=== PATIENT | male | born 1940 | race Caucasian/White ===

== ENCOUNTER 2020-06-01 12:39 | Observation (INO) | payer MEDICARE, OTHER ==
[~2020-06-01] VITALS: Ht 185.4 cm; Wt 84.5 kg
[2020-06-01] MEDS ORDERED: CELE1CAP9 PO (12:55)
[2020-06-01] MEDS ORDERED: ATOR1TAB21 PO (12:55)
[2020-06-01] MEDS ORDERED: NS 500 ML IV ONE (14:30)
[2020-06-01 14:51] LABS: BASO % 0.4 % (0.0-1.0); EOS # 0.1 10^3/uL (0.0-0.5); EOS % 1.7 % (0.0-3.0); HEMOGLOBIN 13.6 g/dl (13.5-17.5); MEAN CORPUSCULAR HEMOGLOBIN 32.5 pg (27.0-33.0); MEAN CORPUSCULAR HGB CONC 33.2 g/dl (32.0-36.5); MEAN CORPUSCULAR VOLUME 97.9 fl (80.0-96.0); MONO # 0.5 10^3/uL (0.0-0.8); MONO % 9.9 % (0.0-5.0); NEUTROPHILS # 3.6 10^3/uL (1.5-8.5); NEUTROPHILS % 68.8 % (36.0-66.0); PLATELET COUNT, AUTOMATED 159 10^3/uL (150-450); RED BLOOD COUNT 4.19 10^6/uL (4.30-6.10); WHITE BLOOD COUNT 5.3 10^3/uL (4.0-10.0)
--- NOTE | 2020-06-01 14:52 | REPVR ---
PROCEDURE INFORMATION: Exam: CT Head Without Contrast Exam date and time: 06/01/2020 2:38 PM Age: 79 years old Clinical indication: Altered mental status/memory loss; Additional info: CVA - nursing interventions must not delay CT TECHNIQUE: Imaging protocol: Computed tomography of the head without contrast. Radiation optimization: All CT scans at this facility use at least one of these dose optimization techniques: automated exposure control; mA and/or kV adjustment per patient size (includes targeted exams where dose is matched to clinical indication); or iterative reconstruction. Other technique: STROKE PROTOCOL was implemented. COMPARISON: No relevant prior studies available. FINDINGS: Brain: The brain demonstrates diffuse volume loss. There is white matter hypodensity most consistent with chronic small vessel ischemic change. No visible evolving territorial infarct. No hemorrhage. Ventricles: No ventriculomegaly. Bones/joints: There is apex right deviation of the nasal septum. Paranasal sinuses: Visualized sinuses are unremarkable. No fluid levels. Mastoid air cells: Visualized mastoid air cells are well aerated. Soft tissues: Unremarkable. IMPRESSION: No acute intracranial abnormality seen. ASSESSMENT: ASPECTS ([place] Stroke Program Early CT Score) is 10. Electronically signed by: Maria E Wilcox On 06/01/2020 14:52:35 PM
[2020-06-01 15:01] LABS: INR 0.95; PROTHROMBIN TIME 12.8 SECONDS (12.5-14.3)
[2020-06-01 15:03] LABS: PARTIAL THROMBOPLASTIN TIME 29.4 SECONDS (24.2-38.5)
[2020-06-01 15:14] LABS: BLOOD UREA NITROGEN 19 MG/DL (7-18); CALCIUM LEVEL 9.2 MG/DL (8.8-10.2); CARBON DIOXIDE LEVEL 30 MEQ/L (21-32); CHLORIDE LEVEL 109 MEQ/L (98-107); CK-MB VALUE MASS 3.4 NG/ML (<3.6); CPK CREATINE PHOSPHOKINASE 187 U/L (39-308); CREATININE FOR GFR 1.17 MG/DL (0.70-1.30); GLOMERULAR FILTRATION RATE > 60.0 (>42); GLUCOSE, FASTING 91 MG/DL (70-100); MB/CK RELATIVE INDEX 1.82 (< OR =4); POTASSIUM SERUM 4.6 MEQ/L (3.5-5.1); SODIUM LEVEL 141 MEQ/L (136-145); TROPONIN I < 0.02 NG/ML (< 0.10)
--- NOTE | 2020-06-01 15:43 | REPVR ---
PROCEDURE INFORMATION: Exam: XR Chest, 1 View Exam date and time: 06/01/2020 3:16 PM Age: 79 years old Clinical indication: Other: Weakness; Additional info: CVA TECHNIQUE: Imaging protocol: XR of the chest Views: 1 view. COMPARISON: No relevant prior studies available. FINDINGS: Lungs: Unremarkable. No consolidation. Pleural space: Unremarkable. No pleural effusion. No pneumothorax. Heart/Mediastinum: Unremarkable. No cardiomegaly. Bones/joints: Unremarkable. IMPRESSION: No evidence of acute cardiopulmonary disease. Electronically signed by: Maria E Wilcox On 06/01/2020 15:43:03 PM
[2020-06-01] MEDS ORDERED: ASPIRIN 325 MG TAB PO ONE (16:00)
[2020-06-01] MEDS ORDERED: SAW1CAPS2 PO (16:22)
[2020-06-01] MEDS ORDERED: LORA-622 PO (16:22)
[2020-06-01] MEDS ORDERED: IRON65TA2 PO (16:22)
[2020-06-01] MEDS ORDERED: ONE-TAB31 PO (16:22)
[2020-06-01] MEDS ORDERED: ATORVASTATIN 20 MG TAB PO ONE (18:15)
--- NOTE | 2020-06-01 18:18 | HPEPDOC ---
[facility] Medical History & Physical Date of Admission Jun 01, 2020 Date of Service: Jun 01, 2020 History and Physical CHIEF COMPLAINT: Paresthesia of the face HISTORY OF PRESENT ILLNESS: Patient is 79-year-old male past medical history of HLD who presents to the emergency department after an episode of paresthesia affecting his lips, tongue, and scalp as well as his right arm. He reports he's never had an episode like this before. 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 He endorses at this paresthesia feels different. He reports that the episode lasted a total of 2 hours before resolving completely with no residual symptoms by the time he arrived to the ED. In the ED CT heads was negative for intracranial bleeding. EKG was normal sinus rhythm and aspirin was given. Neurology was consulted from the ED Dr. Jackson who will see the patient and recommended a stroke workup. PAST MEDICAL HISTORY: 1. Hyperlipidemia PAST SURGICAL HISTORY: 1. None SOCIAL HISTORY: Marital status: and take cares of his at home He quit smoking over 40 years ago. He denies any illicit drug use. Endorses drinking 1-2 beers daily but has never gone through withdrawals. ALLERGIES: Please see below. REVIEW OF SYSTEMS: Constitutional: No sweating or weight loss Eyes: No eye pain or acute blurred vision HENT: No complaints of headache or sore throat Cadiovascular: No Chest pain or palpitations Pulm: No SOB or cough Gastrointestinal: No N/V, no abdominal pain. Genitourinary: No dysuria or hematuria Musculoskeletal: No back pain or joint pain Skin: No rash or jaundice neuro: As in [facility] HOME MEDICATIONS: Please see below. PHYSICAL EXAMINATION: Constitutional: Awake and alert, in no apparent distress ENT: Sclera are clear. Mucosa is moist. Respiratory: Lungs CTA bilaterally. No respiratory distress. No use of accessory muscles. Cardiovascular: RRR S1 and S2 are normal, no murmur Gastrointestinal: Abdomen is soft, non distended, non tender, BS present. Musculoskeletal: No edema. Neurologic: No focal neurological deficit. See full neurological exam below Mental Status: A&O x3, normal affect Skin: Warm, dry Neurological exam: mental status: The patient is awake, alert, oriented to name, location, and date. Cranial nerves: Pupils are equal, round, and reactive to light. Extraocular muscles intact. Visual judge full bilaterally. Smile is symmetrical. Tongue is midline. Intact sensation on both sides of face. Motor: At least 4+/5 in both upper and lower extremities without any drifting. Sensory: Intact to sensation bilaterally. Reflexes: Symmetrical, non-hyperreflexic. Not pathological. Coordination: Jxgiqi-am-[id number] grossly intact. LABORATORY DATA: See below. IMAGING: CT negative for intracranial bleeding MICROBIOLOGY: Please see below. Assessment/plan 79-year-old male with past medical history of hyperlipidemia presents to the ED for sudden onset paresthesias over his face and right arm. Being admitted to the inpatient service for stroke workup. At the time of admission all symptoms have resolved. # Face paresthesia: Symptoms resolved at time of admission. - Stroke protocol initiated - CT head shows no acute intracranial abnormality - ASA 81 mg - Atorvastatin 40 mg QHS - MRI brain and MRA brain w/o contrast - Carotid ultrasound - I performed a bedside swallow evaluation and patient passed. - Neurology consulted - PT/OT eval - Fall & seizure precautions # Hyperlipidemia: Statin # DVT prophylaxis: Lovenox daily. A [facility]ouse[facility] Hospitalist Vital Signs Vital Signs Date Time Temp Pulse Resp B/P (MAP) Pulse Ox O2 Delivery O2 Flow Rate FiO2 06/01/20 16:19 148/68 (94) 06/01/20 16:15 69 18 99 Room Air 06/01/20 12:45 98.3 Laboratory Data Labs 24H Laboratory Tests 2 06/01/20 14:36: Immature Granulocyte % (Auto) 0.2, Neutrophils (%) (Auto) 68.8H, Lymphocytes (%) (Auto) 19.0L, Monocytes (%) (Auto) 9.9H, Eosinophils (%) (Auto) 1.7, Basophils (%) (Auto) 0.4, Neutrophils # (Auto) 3.6, Lymphocytes # (Auto) 1.0L, Monocytes # (Auto) 0.5, Eosinophils # (Auto) 0.1, Basophils # (Auto) 0.0, Nucleated Red Blood Cells % (auto) 0.0, Prothrombin Time 12.8, Prothromb Time International Ratio 0.95, Activated Partial Thromboplast Time 29.4, Urine Color YELLOW, Urine Appearance CLEAR, Urine pH 6.0, Urine Specific [place] 1.006, Urine Protein NEGATIVE, Urine Glucose (UA) NEGATIVE, Urine Ketones NEGATIVE, Urine Blood NEGATIVE, Urine Nitrite NEGATIVE, Urine Bilirubin NEGATIVE, Urine Urobilinogen 0.2, Urine Leukocyte Esterase NEGATIVE, Urine WBC (Auto) 0, Urine RBC (Auto) 0, Urine Hyaline Casts (Auto) 0, Urine Bacteria (Auto) NEGATIVE, Urine Squamous Epithelial Cells 0, Urine Sperm (Auto) , Anion Gap 2L, Glomerular Filtration Rate > 60.0, Calcium Level 9.2, Total Creatine Kinase 187, Creatine Kinase MB 3.4, Creatine Kinase MB Relative Index 1.82, Troponin I < 0.02 CBC/BMP Laboratory Tests 06/01/20 14:36 Home Medications Scheduled Atorvastatin Calcium (Atorvastatin Calcium) 20 Mg Tablet, 20 MG PO DAILY Celecoxib (Celecoxib) 200 Mg Capsule, 200 MG PO DAILY Ferrous Sulfate (Iron) 325 Mg Tablet, 325 MG PO DAILY Loratadine (Loratadine) 10 Mg Tablet, 10 MG PO DAILY Multivitamin (One-Daily Multi-Vitamin) 1 Each Tablet, 1 TAB PO DAILY Saw [place] Fruit/Zinc Picoli (Saw [place] 450 mg Capsule) 1 Each Capsule, 900 MG PO BID Allergies Coded Allergies: No Known Allergies (Verified Allergy, Unknown, 06/01/20) A-FIB/CHADSVASC A-FIB History Current/History of A-Fib/PAF?: No MARK BERUMEN MD Jun 01, 2020 18:17
--- NOTE | 2020-06-01 20:17 | REPVR ---
PROCEDURE INFORMATION: Exam: MR Head Without Contrast Exam date and time: 06/01/2020 5:45 PM Age: 79 years old Clinical indication: Alteration of consciousness; Transient alteration of awareness; Additional info: Suspect TIA TECHNIQUE: Imaging protocol: MR of the head without contrast. COMPARISON: CT Head without contrast 06/01/2020 2:35 PM FINDINGS: Brain: No acute infarct identified on the diffusion-weighted imaging. The brain demonstrates mild generalized volume loss. Patchy foci of increased signal intensity in the deep and subcortical white matter on the T2 weighted imaging most likely representing mild chronic small vessel ischemic change. No hemorrhage. A few tiny, chronic bilateral cerebellar infarcts. Cerebral ventricles: No ventriculomegaly. Bones/joints: Unremarkable. Paranasal sinuses: Normal as visualized. No acute sinusitis. Mastoid air cells: Normal as visualized. No mastoid effusion. Orbits: Unremarkable. Soft tissues: Unremarkable. IMPRESSION: No evidence of acute infarct. Electronically signed by: Maria E Wilcox On 06/01/2020 20:16:34 PM
--- NOTE | 2020-06-01 20:20 | REPVR ---
PROCEDURE INFORMATION: Exam: MR Angiogram Head Without Contrast, Arteries Exam date and time: 06/01/2020 5:45 PM Age: 79 years old Clinical indication: Cognitive deficit; Altered mental status; Additional info: Suspect TIA TECHNIQUE: Imaging protocol: MR angiogram head without contrast. Exam focused on the arteries. COMPARISON: CT Head without contrast 06/01/2020 2:35 PM MRI-Brain without Contrast 06/01/2020 7:29:13 PM FINDINGS: ANTERIOR CIRCULATION: Right internal carotid artery: Intracranial segment is patent with no significant stenosis. No aneurysm. Right middle cerebral artery: No occlusion or significant stenosis. No aneurysm. Right anterior cerebral artery: No occlusion or significant stenosis. No aneurysm. Left internal carotid artery: Intracranial segment is patent with no significant stenosis. No aneurysm. Left middle cerebral artery: No occlusion or significant stenosis. No aneurysm. Left anterior cerebral artery: No occlusion or significant stenosis. No aneurysm. POSTERIOR CIRCULATION: Right vertebral artery: No occlusion or significant stenosis. No aneurysm. Left vertebral artery: No occlusion or significant stenosis. No aneurysm. Basilar artery: No occlusion or significant stenosis. No aneurysm. Right posterior cerebral artery: No occlusion or significant stenosis. No aneurysm. Left posterior cerebral artery: No occlusion or significant stenosis. No aneurysm. IMPRESSION: No major proximal vessel branch occlusion or stenosis seen. Electronically signed by: Maria E Wilcox On 06/01/2020 20:19:40 PM
[2020-06-01 21:15] VITALS: BP 104/64
[2020-06-02 06:00] VITALS: BP 128/68
[2020-06-02 07:18] LABS: HEMATOCRIT 41.2 % (42.0-52.0); HEMOGLOBIN 13.5 g/dl (13.5-17.5); MEAN CORPUSCULAR HEMOGLOBIN 32.7 pg (27.0-33.0); MEAN CORPUSCULAR HGB CONC 32.8 g/dl (32.0-36.5); MEAN CORPUSCULAR VOLUME 99.8 fl (80.0-96.0); PLATELET COUNT, AUTOMATED 171 10^3/uL (150-450); RED BLOOD COUNT 4.13 10^6/uL (4.30-6.10); WHITE BLOOD COUNT 4.3 10^3/uL (4.0-10.0)
[2020-06-02 07:25] LABS: BLOOD UREA NITROGEN 19 MG/DL (7-18); CARBON DIOXIDE LEVEL 30 MEQ/L (21-32); CHLORIDE LEVEL 108 MEQ/L (98-107); CREATININE FOR GFR 1.14 MG/DL (0.70-1.30); GLOMERULAR FILTRATION RATE > 60.0 (>42); GLUCOSE, FASTING 97 MG/DL (70-100); POTASSIUM SERUM 4.1 MEQ/L (3.5-5.1); SODIUM LEVEL 144 MEQ/L (136-145)
--- NOTE | 2020-06-02 07:31 | REPVR ---
PROCEDURE INFORMATION: Exam: US Duplex Bilateral Extracranial Arteries Exam date and time: 06/02/2020 6:39 AM Age: 79 years old Clinical indication: Other: TIA; Additional info: Suspected TIA TECHNIQUE: Imaging protocol: Real-time Duplex ultrasound scan of the bilateral carotid and vertebral arteries combining delgado scale, color Doppler and spectral waveform analysis. Bilateral exam. COMPARISON: CT Head without contrast 06/01/2020 2:35 PM FINDINGS: Right common carotid artery: The right proximal CCA is patent with normal waveform and peak systolic velocity of 60.7 centimeter/second. The mid right CCA is patent with normal waveform and peak systolic velocity of 86.9 centimeter/second. The distal right CCA is patent with normal waveform and peak systolic velocity of 73 centimeter/second. Right internal carotid artery: Small echogenic partly calcified plaque seen in the right carotid bulb. The proximal right ICA is patent with normal waveforms and peak systolic velocity of 50.4 centimeter/second. The end-diastolic velocity measures 8.2 centimeter/second. The right mid ICA is patent with peak systolic velocity of 82.8 centimeter/second. There is increasing diastolic flow with increased end-diastolic velocity at 22.1 centimeter/second The distal right ICA is patent with peak systolic velocity of 99.5 centimeter/second. There is increased diastolic flow with increased end-diastolic velocities of 32.4 centimeter/second. Right ICA/CCA ratio: The peak systolic ICA to CCA ratio on the right measures 1.14. The end-diastolic ICA to CCA ratio on the right measures 1.91 Right external carotid artery: Proximal right ECA is patent with normal waveforms and peak systolic velocity of 62.2 centimeter/second. Right vertebral artery: Antegrade flow seen in the mid right vertebral artery with peak systolic velocity of 125.1 centimeter/second. Reversed flow seen in the mid right vertebral artery with peak systolic velocity of 76 centimeter/second. Left common carotid artery: The left proximal CCA is patent with normal waveform and peak systolic velocity of 94.8 centimeter/second. The mid left CCA is patent with normal waveform and peak systolic velocity of 79.6 centimeter/second. The distal left CCA is patent with normal waveform and peak systolic velocity of 87.4 centimeter/second. Left internal carotid artery: The proximal left ICA is patent with normal waveforms and peak systolic velocity of 78.7 centimeter/second. The left mid ICA is patent with peak systolic velocity of 102.5 centimeter/second. The distal left ICA is patent with peak systolic velocity of 80 centimeter/second. Left ICA/CCA ratio: The peak systolic ICA to CCA ratio on the left measures 1.08 Left external carotid artery: Proximal left ECA is patent with normal waveforms and peak systolic velocity of 44 centimeter/second. Left vertebral artery: Unremarkable. Antegrade flow. Lymph nodes: The end-diastolic ICA to CCA on the left measures 1.5 IMPRESSION: 1. No hemodynamically significant stenosis seen in the right or left internal carotid arteries as observed by the peak systolic velocities and peak systolic ICA to CCA ratio however increased end-diastolic velocities noted in the mid to distal right ICA with mild increased end-diastolic ICA to CCA ratio on the right suggestive of less or near 50% stenosis. 2. Reversed flow in the left vertebral artery. 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 3. Increased right vertebral artery velocities could be compensatory in nature due to the reversal of flow in the left vertebral artery or could be secondary to hemodynamically significant stenosis. If indicated further evaluation with CT angiogram may be obtained. REFERENCES: SRU CRITERIA. The degree of internal carotid artery stenosis is based on criteria defined by the Society of Radiologists in Ultrasound (SRU). Normal is no stenosis. Mild is less than 50% stenosis. Moderate is 50-69% stenosis. Severe is greater than 69% stenosis to near occlusion. Near occlusion is a markedly narrowed lumen. Total occlusion is no detectable patent lumen. Electronically signed by: Ronnie Adams On 06/02/2020 07:30:30 AM
--- NOTE | 2020-06-02 08:56 | IPNPDOC ---
Text Note Date of Service The patient was seen on 06/02/20. NOTE S Patient seen and examined this morning is doing well with no new symptoms. No overnight events. O Constitutional: Awake and alert, in no apparent distress ENT: Sclera are clear. Mucosa is moist. Respiratory: Lungs CTA bilaterally. No respiratory distress. No use of accessory muscles. Cardiovascular: RRR S1 and S2 are normal, no murmur Gastrointestinal: Abdomen is soft, non distended, non tender, BS present. Musculoskeletal: No edema. Neurologic: No focal neurological deficit. See full neurological exam below Mental Status: A&O x3, normal affect Skin: Warm, dry Neurological exam: mental status: The patient is awake, alert, oriented to name, location, and date. Cranial nerves: Pupils are equal, round, and reactive to light. Extraocular muscles intact. Visual judge full bilaterally. Smile is symmetrical. Tongue is midline. Intact sensation on both sides of face. Motor: At least 4+/5 in both upper and lower extremities without any drifting. Sensory: Intact to sensation bilaterally. Reflexes: Symmetrical, non-hyperreflexic. Not pathological. Coordination: Cketfn-le-bgog grossly intact. A/P 79-year-old male with past medical history of hyperlipidemia presents to the ED for sudden onset paresthesias over his face and right arm. Being admitted to the inpatient service for stroke workup. At the time of admission all symptoms have resolved. # Face paresthesia: Symptoms resolved at time of admission. - Stroke protocol initiated - CT head shows no acute intracranial abnormality - MRI brain and MRA brain w/o contrast both negative for occlusions or infarcts - Carotid ultrasound shows approximately 50% occlusion of the carotids on the right side spoke with Dr. Mittal vascular surgery who will review the ultrasound imaging and determine if patient is appropriate for endarterectomy. - I performed a bedside swallow evaluation and patient passed. - Neurology consulted if all imaging negative patient can be discharged home on aspirin and statin - ASA 81 mg, Atorvastatin 40 mg QHS - PT/OT eval - Fall & seizure precautions # Hyperlipidemia: Statin # DVT prophylaxis: Lovenox daily. A [facility] Hospitalist Phillip MONTEMAYOR, I+O VS, Phillip, I+O Laboratory Tests 06/01/20 14:36 06/02/20 06:46 Vital Signs Date Time Temp Pulse Resp B/P (MAP) Pulse Ox O2 Delivery O2 Flow Rate FiO2 06/02/20 06:00 98.0 61 18 128/68 (88) 96 Room Air I&O- Last 24 Hours up to 6 AM 06/02/20 06:00 Intake Total 850 ml Output Total 200 ml Balance 650 ml MARK BERUMEN MD Jun 02, 2020 08:56
[2020-06-02] MEDS ORDERED: ASPIRIN 81 MG CHEW TABLET PO SCH (09:00)
[2020-06-02] MEDS ORDERED: ATORVASTATIN 20 MG TAB PO SCH (09:00)
[2020-06-02] MEDS ORDERED: FLUBLOK(EGG FREE)(QUAD)INFLUENZA VACC 0.5ML SYRINGE 18YRS & OLDER IM ONE (09:00)
[2020-06-02] MEDS ORDERED: ENOXAPARIN 40MG/0.4ML SYRINGE (J1650 PER 10MG) SC SCH (09:00)
--- NOTE | 2020-06-02 13:51 | CR.PDOC ---
General Date of Consultation: Jun 02, [address] Mittal REASON FOR CONSULTATION/CHIEF COMPLAINT: Carotid stenosis HISTORY OF PRESENT ILLNESS: The patient is a 79-year-old male who reported to the emergency department with an episode of paresthesia affecting his lips, tongue, scalp and right arm. The patient does report a history of cervical radiculopathy, he takes Celebrex for this and this occasionally does result in right hand paresthesia. He stated that these symptoms felt different. This lasted approximately 2 hours and then resolved on its own with no residual symptoms. The patient does not report any episodes of amaurosis, dysarthria, dysphagia. CT scan had in the emergency room unremarkable. ALLERGIES: Please see below. HOME MEDICATIONS: Please see below. PAST MEDICAL HISTORY: Dyslipidemia PAST SURGICAL HISTORY: Denies Family history. Unremarkable. SOCIAL HISTORY: States he quit smoking over 40 years ago. REVIEW OF SYSTEMS: As noted in HPI otherwise 11 point review systems unremarkable. PHYSICAL EXAMINATION: VITAL SIGNS: Please see below. GENERAL APPEARANCE: No acute distress HEENT: Moist mucous membranes RESPIRATORY: Clear to auscultation CARDIOVASCULAR: S1 and S2 regular rate rhythm ABDOMEN: Soft nontender EXTREMITIES: No edema NEUROLOGICAL: Alert and oriented 3. Moving all extremities equally. PSYCHIATRIC: Pleasant, cooperative. LABORATORY DATA: Please see below. ASSESSMENT/PLAN: Carotid stenosis. The patient is noted to have had carotid ultrasound 06/02/20 Right ICA peak systolic velocity 99.5, end-diastolic velocity 32.4, ICA/CCA ratio 1.14. Patent right external carotid artery. Antegrade flow in right vertebral artery. Left ICA peak systolic velocity 102.5, end-diastolic velocity not recorded, ICA/CCA ratio 1.08. Left external carotid artery patent. Left for tibial artery antegrade flow. The patient's carotid ultrasound images are reviewed by Dr. Mittal. The patient's symptoms on admission were not felt to correlate with the patient's carotid stenosis. No vascular intervention would be recommended at this time. Would recommend aspirin/statin for best medical management. Would recommend follow-up surveillance carotid ultrasound in 6 months. Thank you for allowing us to reduce pain in the care of this patient. Vital Signs/I&O Vital Signs Date Time Temp Pulse Resp B/P (MAP) Pulse Ox O2 Delivery O2 Flow Rate FiO2 06/02/20 06:00 98.0 61 18 128/68 (88) 96 Room Air I&O- Last 24 Hours up to 6 AM 06/02/20 06:00 Intake Total 850 ml Output Total 200 ml Balance 650 ml Laboratory Data Labs 24H Laboratory Tests 2 06/01/20 14:36: Immature Granulocyte % (Auto) 0.2, Neutrophils (%) (Auto) 68.8H, Lymphocytes (%) (Auto) 19.0L, Monocytes (%) (Auto) 9.9H, Eosinophils (%) (Auto) 1.7, Basophils (%) (Auto) 0.4, Neutrophils # (Auto) 3.6, Lymphocytes # (Auto) 1.0L, Monocytes # (Auto) 0.5, Eosinophils # (Auto) 0.1, Basophils # (Auto) 0.0, Nucleated Red Blood Cells % (auto) 0.0, Prothrombin Time 12.8, Prothromb Time International Ratio 0.95, Activated Partial Thromboplast Time 29.4, Urine Color YELLOW, Urine Appearance CLEAR, Urine pH 6.0, Urine Specific [place] 1.006, Urine Protein NEGATIVE, Urine Glucose (UA) NEGATIVE, Urine Ketones NEGATIVE, Urine Blood NEGATIVE, Urine Nitrite NEGATIVE, Urine Bilirubin NEGATIVE, Urine Urobilinogen 0.2, Urine Leukocyte Esterase NEGATIVE, Urine WBC (Auto) 0, Urine RBC (Auto) 0, Urine Hyaline Casts (Auto) 0, Urine Bacteria (Auto) NEGATIVE, Urine Squamous Ep ithelial Cells 0, Urine Sperm (Auto) , Anion Gap 2L, Glomerular Filtration Rate > 60.0, Calcium Level 9.2, Total Creatine Kinase 187, Creatine Kinase MB 3.4, Creatine Kinase MB Relative Index 1.82, Troponin I < 0.02 06/02/20 06:46: Nucleated Red Blood Cells % (auto) 0.0, Anion Gap 6L, Glomerular Filtration Rate > 60.0, Calcium Level 9.0 CBC/BMP Laboratory Tests 06/01/20 14:36 06/02/20 06:46 Allergies Coded Allergies: No Known Allergies (Verified Allergy, Unknown, 06/01/20) Home Medications Scheduled Atorvastatin Calcium (Atorvastatin Calcium) 20 Mg Tablet, 20 MG PO DAILY, (Reported) Celecoxib (Celecoxib) 200 Mg Capsule, 200 MG PO DAILY, (Reported) Ferrous Sulfate (Iron) 325 Mg Tablet, 325 MG PO DAILY, (Reported) Loratadine (Loratadine) 10 Mg Tablet, 10 MG PO DAILY, (Reported) Multivitamin (One-Daily Multi-Vitamin) 1 Each Tablet, 1 TAB PO DAILY, (Reported) Saw [place] Fruit/Zinc Picoli (Saw [place] 450 mg Capsule) 1 Each Capsule, 900 MG PO BID, (Reported) Nelsy Suh Jun 02, 2020 13:27
[2020-06-02 14:00] VITALS: BP 131/68
--- NOTE | 2020-06-02 14:58 | IPNPDOC ---
Date Seen The patient was seen on 06/02/20. Progress Note Patient seen and examined. Please see Nelsy SINGER full consult note for vascular surgery. The patient had some unusual paresthesias of the face and right upper extremity, different from his normal paresthesias in the right upper extremity from cervical radiculopathy, that resolved after 2 hours. This was felt to be a TIA. MRA and MRI of the brain were negative, and the carotid duplex was performed and found to have mild left ICA stenosis in the range of 50-69%, and less than 50% stenosis on the right. I have reviewed the images. I do not see any ulcerated plaque or concerning lesions on the left or the right. On the left, the plaque is mildly significant, I would say in the 50-55% range, and most likely is unrelated to the patient's episode. I also looked at both the external carotid vessels and did not see any significant stenosis or source of emboli for the symptoms of the left face. At this time, from a vascular standpoint recommended best medical management with aspirin and statin. We would recommend follow-up in 6 months with a repeat carotid duplex for surveillance. W e appreciate the opportunity to participate in care of this patient. VS, I&O, 24H, Fishbone Vital Signs/I&O Vital Signs Date Time Temp Pulse Resp B/P (MAP) Pulse Ox O2 Delivery O2 Flow Rate FiO2 06/02/20 14:00 98.4 67 18 131/68 (89) 97 Room Air I&O- Last 24 Hours up to 6 AM 06/02/20 06:00 Intake Total 850 ml Output Total 200 ml Balance 650 ml Laboratory Data 24H LABS Laboratory Tests 2 06/02/20 06:46: Nucleated Red Blood Cells % (auto) 0.0, Anion Gap 6L, Glomerular Filtration Rate > 60.0, Calcium Level 9.0 CBC/BMP Laboratory Tests 06/02/20 06:46 HERNANDO KIDD MD Jun 02, 2020 14:58
[2020-06-02] MEDS ORDERED: LIPI20TA PO (15:25)
[2020-06-02] MEDS ORDERED: ASPI81CH8 PO (15:25)
--- NOTE | 2020-06-02 20:50 | ECGEPIP ---
[facility] [place] - ED Test Date: 2020-06-01 Pat Name: BOBBY LEMONS Department: Room: - Gender: Male Fox Farmer: [facility] : 1940 Requested By: REECE Guerrero Order Number: [id number] Reading MD: Chacha Bocanegra Measurements Intervals [place] Rate: 61 P: 57 NC: 192 QRS: -13 QRSD: 151 T: 21 QT: 456 QTc: 459 Interpretive Statements SINUS RHYTHM RIGHT BUNDLE BRANCH BLOCK NO PRIOR Electronically Signed on 06-02-2020 20:49:37 EDT by Chacha Bocanegra
--- NOTE | 2020-06-03 16:07 | ECHO ---
DATE OF PROCEDURE: 06/02/2020 Age: 79 Gender: Male Height: 73 inches Weight: 180 pounds Body surface area: 2.06 m2 PATIENT LOCATION: Inpatient, [address] [place] [address], Room 4236. REFERRING PHYSICIAN: Francis Santizo MD INDICATION: Transient ischemic attack (TIA) cardiac source of embolic material ? MEASUREMENTS: 2D Measurements: RV 4.3 cm LV 5.2 cm Septum 1.2 cm Posterior wall 1.2 cm Aortic Root 4.1 cm LA 4.1 cm LVEF 55% Doppler Measurements: AV 1.05 m/s LVOT 0.7 m/s LVOT diameter 2.2 cm MV-E 48, A 54, E/A ratio 0.9 Early mitral deceleration time 250 m/s E prime medial 6, A prime medial 11, E prime lateral 7 Average E/E prime ratio 7.4/PCWP - 11 mmHg PV 0.7 m/s Pulmonary artery acceleration time 130 m/s RVSP 34 mmHg IVC 1.7 cm COMMENTS: Sinus bradycardia with right bundle branch block. M-mode and two-dimensional echocardiography was performed with pulsed, continuous wave, color flow, and tissue Doppler studies. Normal left ventricular size with borderline symmetrical hypertrophy. Normal wall motion. Mildly dilated left atrium with grade 1 left ventricular diastolic dysfunction, but currently normal estimated mean left atrial pressure. Mildly dilated right heart chambers with normal wall motion and Doppler evidence of mild pulmonary hypertension. Normal inferior vena cava (IVC) size and collapse against an elevated central venous pressure. Mildly dilated aortic root, but normal ascending aortic diameter. Normal appearing aortic valve, but very mild aortic insufficiency due to a dilated aortic root. Normal appearing and functioning mitral valve with very mild insufficiency. Normal appearing and functioning tricuspid valve with very mild insufficiency. No apparent intracardiac mass or pericardial effusion. If a cardiac source of embolic material is seriously suspect, would recommend a transesophageal echocardiogram. [facility]
== END 2020-06-02 16:30 | disposition home or self-care (01) ==
LOC: M ED 12:39 → EDBD 12:39 → M ED INP 12:40 → ENRESERV 20:25 → M MSPAV 21:15
PROVIDERS: ADMIT Family Medicine; ATTEND Family Medicine
DX: G45.9 Transient cerebral ischemic attack, unspecified (principal); M54.12 Radiculopathy, cervical region; R20.2 Paresthesia of skin; E78.5 Hyperlipidemia, unspecified; Z87.891 Personal history of nicotine dependence; Z79.899 Other long term (current) drug therapy
CPT/HCPCS: 36415; 70450; 70544; 70551; 71045; 80048; 81001; 82550; 82553; 84484; 85025; 85027; 85610; 85730; 90682; 93005; 93041; 93306; 93880; 94760; 96360; 96372; 97161; 97165; 99285; G0008; G0378; J1650

== ENCOUNTER → 2020-07-08 | Outpatient (CLI) | payer MEDICARE, OTHER ==
[~2020-07-08] MED LIST: ASPI81CH8 PO; ATOR1TAB21 PO; CELE1CAP9 PO; IRON65TA2 PO; LIPI20TA PO; LORA-622 PO; ONE-TAB31 PO; SAW1CAPS2 PO
[2020-07-08 18:03] LABS: HEMATOCRIT 40.8 % (42.0-52.0); HEMOGLOBIN 12.8 g/dl (13.5-17.5); MEAN CORPUSCULAR HEMOGLOBIN 31.5 pg (27.0-33.0); MEAN CORPUSCULAR HGB CONC 31.4 g/dl (32.0-36.5); MEAN CORPUSCULAR VOLUME 100.5 fl (80.0-96.0); PLATELET COUNT, AUTOMATED 110 10^3/uL (150-450); RED BLOOD COUNT 4.06 10^6/uL (4.30-6.10); WHITE BLOOD COUNT 5.8 10^3/uL (4.0-10.0)
[2020-07-08 18:16] LABS: ALBUMIN 3.6 GM/DL (3.2-5.2); ALT/SGPT 27 U/L (12-78); BILIRUBIN,DIRECT 0.1 MG/DL (0.0-0.2); BILIRUBIN,TOTAL 0.7 MG/DL (0.2-1.0); BLOOD UREA NITROGEN 22 MG/DL (7-18); CALCIUM LEVEL 8.7 MG/DL (8.8-10.2); CARBON DIOXIDE LEVEL 29 MEQ/L (21-32); CHLORIDE LEVEL 106 MEQ/L (98-107); CREATININE FOR GFR 1.19 MG/DL (0.70-1.30); GLOMERULAR FILTRATION RATE > 60.0 (>42); GLUCOSE, FASTING 83 MG/DL (70-100); PHOSPHORUS LEVEL 3.4 MG/DL (2.5-4.9); POTASSIUM SERUM 4.3 MEQ/L (3.5-5.1); SODIUM LEVEL 140 MEQ/L (136-145); TOTAL PROTEIN 7.3 GM/DL (6.4-8.2)
== END ==
LOC: M PLALAB 13:32
PROVIDERS: ATTEND Podiatrist Foot & Ankle Surgery
DX: Z79.899 Other long term (current) drug therapy (principal); B35.1 Tinea unguium

== ENCOUNTER → 2020-08-18 | Outpatient (CLI) | payer MEDICARE, OTHER ==
[2020-08-18 13:44] LABS: HEMATOCRIT 42.4 % (42.0-52.0); HEMOGLOBIN 13.6 g/dl (13.5-17.5); MEAN CORPUSCULAR HEMOGLOBIN 31.8 pg (27.0-33.0); MEAN CORPUSCULAR HGB CONC 32.1 g/dl (32.0-36.5); MEAN CORPUSCULAR VOLUME 99.1 fl (80.0-96.0); RED BLOOD COUNT 4.28 10^6/uL (4.30-6.10); WHITE BLOOD COUNT 5.5 10^3/uL (4.0-10.0)
[2020-08-18 14:17] LABS: ALBUMIN 3.6 GM/DL (3.2-5.2); BILIRUBIN,DIRECT 0.2 MG/DL (0.0-0.2); BILIRUBIN,TOTAL 0.6 MG/DL (0.2-1.0); CALCIUM LEVEL 8.8 MG/DL (8.8-10.2); CREATININE FOR GFR 1.3 MG/DL (0.70-1.30); PHOSPHORUS LEVEL 3.3 MG/DL (2.5-4.9); POTASSIUM SERUM 4.6 MEQ/L (3.5-5.1); TOTAL PROTEIN 7.1 GM/DL (6.4-8.2)
== END ==
LOC: M PLALAB 10:03
PROVIDERS: ATTEND Podiatrist Foot & Ankle Surgery
DX: B35.1 Tinea unguium (principal); Z79.899 Other long term (current) drug therapy

== ENCOUNTER → 2020-09-07 | Outpatient (REF) | payer MEDICARE, OTHER ==
[2020-09-07 13:47] LABS: ALT/SGPT 34 U/L (12-78); BILIRUBIN,TOTAL 0.7 MG/DL (0.2-1.0); BLOOD UREA NITROGEN 20 MG/DL (7-18); CARBON DIOXIDE LEVEL 30 MEQ/L (21-32); CHLORIDE LEVEL 107 MEQ/L (98-107); CREATININE FOR GFR 1.23 MG/DL (0.70-1.30); GLOMERULAR FILTRATION RATE > 60.0 (>42); GLUCOSE, FASTING 79 MG/DL (70-100); POTASSIUM SERUM 4.9 MEQ/L (3.5-5.1); SODIUM LEVEL 141 MEQ/L (136-145); TRIGLYCERIDES LEVEL 116 MG/DL (<150)
[2020-09-07 13:48] LABS: ALBUMIN 3.6 GM/DL (3.2-5.2); CHOLESTEROL LEVEL 155 MG/DL (<200); CHOLESTEROL RISK RATIO 3.297 (<5); HDL CHOLESTEROL 47 MG/DL (>40); LDL CHOLESTEROL 85 MG/DL (<100); NON-HDL-C 108 MG/DL
== END ==
LOC: M PLALAB 11:19
PROVIDERS: ATTEND Nurse Practitioner Family
DX: E78.2 Mixed hyperlipidemia (principal); R97.20 Elevated prostate specific antigen [PSA]
CPT/HCPCS: 36415; 80053; 80061; G0103

== ENCOUNTER → 2020-09-27 | Outpatient (REF) | payer MEDICARE, OTHER ==
[2020-09-27 18:18] LABS: APPEARANCE, URINE CLEAR (CLEAR); BACTERIA, URINE AUTO NEGATIVE (NEGATIVE); BILIRUBIN, URINE AUTO NEGATIVE (NEGATIVE); BLOOD, URINE BLOOD NEGATIVE (NEGATIVE); COLOR, URINE YELLOW (YELLOW); GLUCOSE, URINE (UA) AUTO NEGATIVE (NEGATIVE); KETONE, URINE AUTO NEGATIVE (NEGATIVE); LEUKOCYTE ESTERASE, URINE AUTO NEGATIVE (NEGATIVE); MUCUS, URINE SMALL (NEGATIVE); NITRITE, URINE AUTO NEGATIVE (NEGATIVE); PROTEIN, URINE AUTO NEGATIVE (NEGATIVE); RBC, URINE AUTO 0 /HPF (0-3); SPECIFIC GRAVITY URINE AUTO 1.016 (1.002-1.035); SQUAMOUS EPITHELIAL CELL UR AU 0 /HPF (0-6); UROBILINOGEN, URINE AUTO 0.2 mg/dL (0.0-2.0); WBC, URINE AUTO 0 /HPF (0-3)
== END ==
LOC: M SMT 16:56
PROVIDERS: ATTEND Nurse Practitioner Women's Health
DX: N40.0 Benign prostatic hyperplasia without lower urinary tract symptoms (principal)
CPT/HCPCS: 51798; 81001; 87086; G0463

== ENCOUNTER → 2020-10-25 | Outpatient (CLI) | payer MEDICARE, OTHER ==
--- NOTE | 2020-10-25 13:26 | REPPI ---
INDICATION: ELEVATED PSA. COMPARISON: None. TECHNIQUE: Transrectal prostate sonography. FINDINGS: Trans rectal prostate sonography demonstrates unremarkable seminal vesicles. Prostate gland is heterogeneous, with calcifications and cystic changes noted. Glandular dimensions are measured at 4.9 x 4.1 x 6.3 cm with a calculated glandular volume of 66.4 ml. Transrectal sonographic guidance is provided to Dr. Saunders who performed trans rectal ultrasound guided needle biopsy procedure. IMPRESSION: Transrectal prostate sonographic findings as above. <Electronically signed by Daniel Montana > 10/25/20 0929
== END ==
LOC: M SMT PRO 08:35
PROVIDERS: ATTEND Urology
DX: R97.20 Elevated prostate specific antigen [PSA] (principal)
CPT/HCPCS: 55700; 76872; 76942; G0416

== ENCOUNTER → 2021-05-04 | Outpatient (CLI) | payer MEDICARE, OTHER | LOC: M LAB 17:00 | PROVIDERS: ATTEND Urology | DX: R97.20 Elevated prostate specific antigen [PSA] (principal) ==

== ENCOUNTER → 2021-10-13 | Outpatient (CLI) | payer MEDICARE, OTHER | LOC: M RAD 17:36 | PROVIDERS: ATTEND Physician Assistant | DX: S22.42XA Multiple fractures of ribs, left side, initial encounter for closed fracture (principal) ==

== ENCOUNTER → 2022-01-01 | Outpatient (CLI) | payer MEDICARE, OTHER ==
[~2022-01-01] MED LIST changes: +AMLO1TAB24 PO; +ATOR40TA75 PO; +EZET10TA21 PO; +TAMS1CAP17 PO
[2022-01-01 13:17] LABS: HEMATOCRIT 37.3 % (42.0-52.0); HEMOGLOBIN 11.9 g/dl (13.5-17.5); MEAN CORPUSCULAR HEMOGLOBIN 31.2 pg (27.0-33.0); MEAN CORPUSCULAR HGB CONC 31.9 g/dl (32.0-36.5); MEAN CORPUSCULAR VOLUME 97.9 fl (80.0-96.0); RED BLOOD COUNT 3.81 10^6/uL (4.30-6.10); WHITE BLOOD COUNT 4.6 10^3/uL (4.0-10.0)
[2022-01-01 13:25] LABS: INR 0.98; PROTHROMBIN TIME 13.4 SECONDS (12.7-14.5)
[2022-01-01 13:26] LABS: PARTIAL THROMBOPLASTIN TIME 36.6 SECONDS (25.9-37.0)
[2022-01-01 13:48] LABS: BLOOD UREA NITROGEN 26 MG/DL (7-18); CARBON DIOXIDE LEVEL 29 MEQ/L (21-32); CHLORIDE LEVEL 108 MEQ/L (98-107); GLOMERULAR FILTRATION RATE > 60.0 (>42); GLUCOSE, FASTING 90 MG/DL (70-100); POTASSIUM SERUM 4.5 MEQ/L (3.5-5.1); SODIUM LEVEL 141 MEQ/L (136-145)
== END ==
LOC: M PLALAB 09:19
PROVIDERS: ATTEND Urology
DX: N40.1 Benign prostatic hyperplasia with lower urinary tract symptoms (principal); Z79.01 Long term (current) use of anticoagulants

== ENCOUNTER → 2022-01-05 | Outpatient (CLI) | payer MEDICARE, OTHER | LOC: M LABSMTC 10:18 | PROVIDERS: ATTEND Anesthesiology | DX: Z01.812 Encounter for preprocedural laboratory examination (principal); Z20.822 Contact with and (suspected) exposure to COVID-19 ==

== ENCOUNTER → 2022-01-29 | Outpatient (CLI) | payer MEDICARE, OTHER ==
[~2022-01-29] MED LIST changes: +ACET32TAB PO
[2022-01-29 17:47] LABS: HEMATOCRIT 39.1 % (42.0-52.0); HEMOGLOBIN 12.6 g/dl (13.5-17.5); MEAN CORPUSCULAR HEMOGLOBIN 31.6 pg (27.0-33.0); MEAN CORPUSCULAR HGB CONC 32.2 g/dl (32.0-36.5); RED BLOOD COUNT 3.99 10^6/uL (4.30-6.10); WHITE BLOOD COUNT 4.8 10^3/uL (4.0-10.0)
[2022-01-29 18:13] LABS: BLOOD UREA NITROGEN 17 MG/DL (7-18); CALCIUM LEVEL 8.7 MG/DL (8.8-10.2); CARBON DIOXIDE LEVEL 31 MEQ/L (21-32); CHLORIDE LEVEL 108 MEQ/L (98-107); CREATININE FOR GFR 1.21 MG/DL (0.70-1.30); GLOMERULAR FILTRATION RATE > 60.0 (>42); GLUCOSE, FASTING 98 MG/DL (70-100); POTASSIUM SERUM 4.4 MEQ/L (3.5-5.1); SODIUM LEVEL 141 MEQ/L (136-145)
== END ==
LOC: M PLALAB 15:38
PROVIDERS: ATTEND Urology
DX: N40.1 Benign prostatic hyperplasia with lower urinary tract symptoms (principal); D50.9 Iron deficiency anemia, unspecified

== ENCOUNTER → 2022-02-02 | Outpatient (CLI) | payer MEDICARE, OTHER | LOC: M LABSMTC 09:52 | PROVIDERS: ATTEND Anesthesiology | DX: Z20.822 Contact with and (suspected) exposure to COVID-19 (principal) ==

== ENCOUNTER 2022-02-07 09:14 | Day surgery (SDC) | payer MEDICARE, OTHER ==
[~2022-02-07] VITALS: Ht 185.4 cm; Wt 80.8 kg
[~2022-02-07 09:14] MED LIST changes: +ceFAZolin SOD 2 GM in IV 1 EA IV ONE
[2022-02-07] MEDS ORDERED: ALL10TAB2 PO (09:29)
[2022-02-07] MEDS ORDERED: ROCURONIUM BROMIDE 50 MG/5 ML VIAL As Ordered ONE ×2 (09:48→12:24)
[2022-02-07] MEDS ORDERED: propofoL 200 MG/20 ML VIAL As Ordered ONE (09:48)
[2022-02-07] MEDS ORDERED: LIDOCAINE 2% 100MG/5ML SDV (FOR ANES.) As Ordered ONE (09:48)
[2022-02-07] MEDS ORDERED: MIDAZOLAM INJ 2MG/2ML VIAL (J2250 PER 1MG) As Ordered ONE (09:49)
[2022-02-07] MEDS ORDERED: fentaNYL 250 MCG/5 ML INJECTION As Ordered ONE (09:49)
[2022-02-07] MEDS ORDERED: LR 1,000 ML IV SCH ×2 (09:55→13:55)
[2022-02-07] MEDS ORDERED: INSULIN LISPRO (NovoLOG) PER UNIT SC PRN (09:55)
[2022-02-07] MEDS ORDERED: ePHEDrine SULFATE 25 MG/5 ML(5MG/ML) SYRINGE As Ordered ONE (11:13)
[2022-02-07] MEDS ORDERED: dexameTHASONE 4 MG/ML 1ML VIAL (J1100 PER 1MG) As Ordered ONE (11:13)
[2022-02-07] MEDS ORDERED: ACETAMINOPHEN 1000MG 100ML IV BTL (OFIRMEV) (J0131 PER 10MG) As Ordered ONE (11:45)
[2022-02-07] MEDS ORDERED: SUGAMMADEX SODIUM 500 MG/5 ML VIAL (BRIDION) As Ordered ONE (11:54)
[2022-02-07] MEDS ORDERED: ONDANSETRON 4MG/2ML VIAL As Ordered ONE (11:54)
[2022-02-07] MEDS ORDERED: PHENYLephrine 500MCG 5ML (100MCG/ML) SYRINGE As Ordered ONE (12:14)
[2022-02-07] MEDS ORDERED: FUROSEMIDE 100MG/10ML VIAL (J1940) As Ordered ONE (13:31)
[2022-02-07] MEDS ORDERED: oxyCODONE 5MG TAB PO PRN (13:55)
[2022-02-07] MEDS ORDERED: ONDANSETRON 4MG/2ML VIAL IV PRN (13:55)
[2022-02-07] MEDS ORDERED: METOCLOPRAMIDE INJ 10MG/2ML VIAL (J2765 PER 1) IV PRN (13:55)
[2022-02-07] MEDS ORDERED: fentaNYL 100 MCG/2 ML INJECTION IV PRN (13:55)
[2022-02-07] MEDS ORDERED: BACT800T5 PO (14:23)
[2022-02-07 15:52] VITALS: BP 108/56
== END 2022-02-07 15:58 | disposition home or self-care (01) ==
LOC: M SDC 09:14
PROVIDERS: ATTEND Urology
DX: N40.1 Benign prostatic hyperplasia with lower urinary tract symptoms (principal); I10 Essential (primary) hypertension; E78.5 Hyperlipidemia, unspecified; Z86.73 Personal history of transient ischemic attack (TIA), and cerebral infarction without residual deficits; Z87.891 Personal history of nicotine dependence; K59.00 Constipation, unspecified; Z92.3 Personal history of irradiation; R94.31 Abnormal electrocardiogram [ECG] [EKG]; Z79.82 Long term (current) use of aspirin; Z79.899 Other long term (current) drug therapy

== ENCOUNTER 2022-02-07 22:06 | Emergency (ER) | payer MEDICARE, OTHER ==
[~2022-02-07] VITALS: Ht 185.4 cm; Wt 82.7 kg
[~2022-02-07 22:06] MED LIST changes: +ALL10TAB2 PO; +BACT800T5 PO; -ceFAZolin SOD 2 GM in IV 1 EA IV ONE
[2022-02-07 22:40] VITALS: BP 133/60
== END 2022-02-08 01:43 | disposition home or self-care (01) ==
LOC: M ED 22:06 → EDBD 22:06 → M ED 02-08 01:43
DX: N32.89 Other specified disorders of bladder (principal); R31.9 Hematuria, unspecified; T83.098A Other mechanical complication of other urinary catheter, initial encounter; I10 Essential (primary) hypertension; N40.0 Benign prostatic hyperplasia without lower urinary tract symptoms; E78.00 Pure hypercholesterolemia, unspecified; Z86.73 Personal history of transient ischemic attack (TIA), and cerebral infarction without residual deficits; Z79.899 Other long term (current) drug therapy; Z79.82 Long term (current) use of aspirin
CPT/HCPCS: 99283; J0131; J0690; J1100; J1940; J2250; J2370; J2405; J3010

== ENCOUNTER → 2022-07-04 | Outpatient (CLI) | payer MEDICARE, OTHER ==
[2022-07-04 14:35] LABS: BASO % 0.4 % (0.0-1.0); EOS # 0.2 10^3/uL (0.0-0.5); EOS % 3.3 % (0.0-3.0); HEMATOCRIT 42.1 % (42.0-52.0); HEMOGLOBIN 13.5 g/dl (13.5-17.5); LYMPH # 1.2 10^3/uL (1.5-5.0); LYMPH % 25.2 % (24.0-44.0); MEAN CORPUSCULAR HEMOGLOBIN 31.3 pg (27.0-33.0); MEAN CORPUSCULAR HGB CONC 32.1 g/dl (32.0-36.5); MEAN CORPUSCULAR VOLUME 97.5 fl (80.0-96.0); MONO # 0.6 10^3/uL (0.0-0.8); MONO % 12.1 % (2.0-8.0); NEUTROPHILS # 2.8 10^3/uL (1.5-8.5); NEUTROPHILS % 58.8 % (36.0-66.0); RED BLOOD COUNT 4.32 10^6/uL (4.30-6.10); WHITE BLOOD COUNT 4.8 10^3/uL (4.0-10.0)
[2022-07-04 17:11] LABS: ALBUMIN 3.7 GM/DL (3.2-5.2); BILIRUBIN,TOTAL 0.5 MG/DL (0.2-1.0); CALCIUM LEVEL 9.2 MG/DL (8.8-10.2); CHOLESTEROL RISK RATIO 2.384 (<5); CREATININE FOR GFR 1.29 MG/DL (0.70-1.30); GLOMERULAR FILTRATION RATE 57.2 (>42); POTASSIUM SERUM 4.8 MEQ/L (3.5-5.1); TOTAL PROTEIN 7.2 GM/DL (6.4-8.2)
[2022-07-04 18:32] LABS: TOTAL 25(OH) VITAMIN D 37.3 NG/ML (30.0-100.0)
[2022-07-04 20:31] LABS: HEMOGLOBIN A1c 5.5 %
[2022-07-06 07:27] LABS: HEMATOCRIT 42.2 % (42.0-52.0)
== END ==
LOC: M PLALAB 11:39
PROVIDERS: ATTEND Nurse Practitioner Family
DX: I10 Essential (primary) hypertension (principal); D53.9 Nutritional anemia, unspecified; E78.2 Mixed hyperlipidemia; R79.89 Other specified abnormal findings of blood chemistry; Z13.1 Encounter for screening for diabetes mellitus; Z79.899 Other long term (current) drug therapy

== ENCOUNTER → 2022-09-11 | Outpatient (CLI) | payer MEDICARE, OTHER | LOC: M PLALAB 12:58 | PROVIDERS: ATTEND Urology | DX: R97.20 Elevated prostate specific antigen [PSA] (principal) ==

== ENCOUNTER → 2022-10-25 | Outpatient (CLI) | payer MEDICARE, OTHER | LOC: M LABSMTC 09:55 | PROVIDERS: ATTEND Anesthesiology | DX: Z01.812 Encounter for preprocedural laboratory examination (principal); Z11.52 Encounter for screening for COVID-19 ==

== ENCOUNTER 2022-10-30 09:41 | Day surgery (SDC) | payer MEDICARE, OTHER ==
[~2022-10-30] VITALS: Ht 185.4 cm; Wt 77.1 kg
[~2022-10-30 09:41] MED LIST changes: +LR 1,000 ML IV SCH; +ONDANSETRON 4MG 2ML VIAL IV PRN; +ceFAZolin SOD 2 GM in IV 1 EA IV ONE; +fentaNYL 100 MCG/2 ML INJECTION IV PRN; +oxyCODONE 5MG TAB PO PRN
[2022-10-30] MEDS ORDERED: fentaNYL 100 MCG/2 ML INJECTION As Ordered ONE ×2 (10:00→12:04)
[2022-10-30] MEDS ORDERED: LIDOCAINE 2% 100MG/5ML SDV (FOR ANES.) As Ordered ONE (10:00)
[2022-10-30] MEDS ORDERED: ROCURONIUM BROMIDE 50MG/5ML VIAL As Ordered ONE ×2 (10:00→12:02)
[2022-10-30] MEDS ORDERED: propofoL 200 MG/20 ML VIAL As Ordered ONE (10:00)
[2022-10-30] MEDS ORDERED: ONDANSETRON 4MG 2ML VIAL As Ordered ONE (10:00)
[2022-10-30] MEDS ORDERED: MIDAZOLAM INJ 2MG/2ML VIAL As Ordered ONE (10:00)
[2022-10-30] MEDS ORDERED: BUPIVACAINE/EPIN 0.25% 30ML VIAL As Ordered ONE (11:16)
[2022-10-30] MEDS ORDERED: ACETAMINOPHEN 1000MG 100ML IV BAG As Ordered ONE (11:42)
[2022-10-30] MEDS ORDERED: SUGAMMADEX SODIUM 500 MG/5 ML VIAL (BRIDION) As Ordered ONE (11:57)
[2022-10-30] MEDS ORDERED: KETOROLAC 60MG 2ML VIAL As Ordered ONE (11:57)
[2022-10-30] MEDS ORDERED: LR 1,000 ML IV SCH (12:55)
[2022-10-30] MEDS ORDERED: ONDANSETRON 4MG 2ML VIAL IV PRN (12:55)
[2022-10-30] MEDS ORDERED: oxyCODONE 5MG TAB PO PRN (12:55)
[2022-10-30] MEDS ORDERED: fentaNYL 100 MCG/2 ML INJECTION IV PRN (12:55)
[2022-10-30] MEDS ORDERED: NS 1,000 ML IV SCH (13:00)
[2022-10-30] MEDS ORDERED: traMADol 50 MG TAB PO PRN (13:00)
[2022-10-30 15:05] VITALS: BP 169/77
== END 2022-10-30 15:25 | disposition home or self-care (01) ==
LOC: M SDC 09:41
PROVIDERS: ATTEND Surgery
DX: K40.90 Unilateral inguinal hernia, without obstruction or gangrene, not specified as recurrent (principal); E78.9 Disorder of lipoprotein metabolism, unspecified; I10 Essential (primary) hypertension; I45.10 Unspecified right bundle-branch block; I49.9 Cardiac arrhythmia, unspecified; Z86.73 Personal history of transient ischemic attack (TIA), and cerebral infarction without residual deficits; N40.0 Benign prostatic hyperplasia without lower urinary tract symptoms; L40.9 Psoriasis, unspecified; Z87.891 Personal history of nicotine dependence; Z88.3 Allergy status to other anti-infective agents; Z79.899 Other long term (current) drug therapy; Z79.82 Long term (current) use of aspirin
CPT/HCPCS: 49650; C1781; J0131; J0690; J1100; J1885; J2250; J2405; J3010; S2900

== ENCOUNTER 2022-12-14 15:33 | Emergency (ER) | payer MEDICARE, OTHER ==
[~2022-12-14] VITALS: Ht 188 cm; Wt 77.3 kg
[~2022-12-14 15:33] MED LIST changes: -LR 1,000 ML IV SCH; -ONDANSETRON 4MG 2ML VIAL IV PRN; -ceFAZolin SOD 2 GM in IV 1 EA IV ONE; -fentaNYL 100 MCG/2 ML INJECTION IV PRN; -oxyCODONE 5MG TAB PO PRN
[2022-12-14] MEDS ORDERED: BOOSTRIX/ADACEL VACCINE (DIPHTH/PERTUSS/ACELL/TETANUS) 0.5ML SYR IM ONE (16:05)
[2022-12-14 17:21] VITALS: BP 158/74
== END 2022-12-14 17:23 | disposition home or self-care (01) ==
LOC: M ED 15:33
DX: S61.211A Laceration without foreign body of left index finger without damage to nail, initial encounter (principal); W27.2XXA Contact with scissors, initial encounter; Y92.009 Unspecified place in unspecified non-institutional (private) residence as the place of occurrence of the external cause; Z23 Encounter for immunization; I10 Essential (primary) hypertension; N40.0 Benign prostatic hyperplasia without lower urinary tract symptoms; Z86.73 Personal history of transient ischemic attack (TIA), and cerebral infarction without residual deficits; Z79.899 Other long term (current) drug therapy; Z79.82 Long term (current) use of aspirin; Z88.8 Allergy status to other drugs, medicaments and biological substances

== ENCOUNTER → 2023-01-08 | Outpatient (REF) | payer MEDICARE, OTHER | LOC: M SFHCPLAZ 15:34 | PROVIDERS: ATTEND Nurse Practitioner Family | DX: D53.9 Nutritional anemia, unspecified (principal) ==

== ENCOUNTER → 2023-01-08 | Outpatient (CLI) | payer MEDICARE, OTHER ==
[2023-01-08 14:05] LABS: BASO % 0.5 % (0.0-1.0); EOS # 0.2 10^3/uL (0.0-0.5); EOS % 4.6 % (0.0-3.0); HEMATOCRIT 40.5 % (42.0-52.0); LYMPH # 1.2 10^3/uL (1.5-5.0); LYMPH % 29.7 % (24.0-44.0); MEAN CORPUSCULAR HEMOGLOBIN 32.2 pg (27.0-33.0); MEAN CORPUSCULAR HGB CONC 32.1 g/dl (32.0-36.5); MEAN CORPUSCULAR VOLUME 100.2 fl (80.0-96.0); MONO # 0.6 10^3/uL (0.0-0.8); MONO % 13.6 % (2.0-8.0); NEUTROPHILS # 2.1 10^3/uL (1.5-8.5); NEUTROPHILS % 51.6 % (36.0-66.0); RED BLOOD COUNT 4.04 10^6/uL (4.30-6.10); WHITE BLOOD COUNT 4.1 10^3/uL (4.0-10.0)
[2023-01-08 14:12] LABS: ALBUMIN 3.7 G/DL (3.2-5.2); ALKALINE PHOSPHATASE 96 U/L (46-116); ALT/SGPT 23 U/L (7.0-40); AST/SGOT 8 U/L (<34); BILIRUBIN,TOTAL 0.7 MG/DL (0.3-1.2); BLOOD UREA NITROGEN 20 MG/DL (9-23); CALCIUM LEVEL 8.8 MG/DL (8.3-10.6); CARBON DIOXIDE LEVEL 31 MMOL/L (20-31); CHLORIDE LEVEL 106 MMOL/L (98-107); CHOLESTEROL LEVEL 124 MG/DL (<200); CREATININE FOR GFR 1.09 MG/DL (0.70-1.30); GLOMERULAR FILTRATION RATE > 60.0 (>35); GLUCOSE, FASTING 90 MG/DL (74-106); HDL CHOLESTEROL 45.8 MG/DL (>40); LDL CHOLESTEROL 60.4 MG/DL (<100); NON-HDL-C 78.2 MG/DL; SODIUM LEVEL 140 MMOL/L (136-145); TOTAL 25(OH) VITAMIN D 45.7 NG/ML (20.0-100.0); TOTAL PROTEIN 6.8 G/DL (5.7-8.2); TRIGLYCERIDES LEVEL 89 MG/DL (<150)
== END ==
LOC: M PLALAB 11:11
PROVIDERS: ATTEND Nurse Practitioner Family
DX: D53.9 Nutritional anemia, unspecified (principal); I10 Essential (primary) hypertension; E78.2 Mixed hyperlipidemia; R79.89 Other specified abnormal findings of blood chemistry; Z79.899 Other long term (current) drug therapy

== ENCOUNTER → 2023-04-24 | Outpatient (CLI) | payer MEDICARE, OTHER ==
[2023-04-24 15:38] LABS: BASO % 0.3 % (0.0-1.0); EOS # 0.2 10^3/uL (0.0-0.5); HEMATOCRIT 40.5 % (42.0-52.0); HEMOGLOBIN 13.1 g/dl (13.5-17.5); LYMPH # 1.1 10^3/uL (1.5-5.0); LYMPH % 17.7 % (24.0-44.0); MEAN CORPUSCULAR HEMOGLOBIN 32.8 pg (27.0-33.0); MEAN CORPUSCULAR HGB CONC 32.3 g/dl (32.0-36.5); MEAN CORPUSCULAR VOLUME 101.3 fl (80.0-96.0); MONO # 0.6 10^3/uL (0.0-0.8); NEUTROPHILS # 4.4 10^3/uL (1.5-8.5); NEUTROPHILS % 68.7 % (36.0-66.0); PLATELET COUNT, AUTOMATED 129 10^3/uL (150-450); WHITE BLOOD COUNT 6.4 10^3/uL (4.0-10.0)
[2023-04-26 17:07] LABS: IMMUNOTYPING SERUM IGA SO 247 mg/dL (61-437); IMMUNOTYPING SERUM IGM SO 320 mg/dL (15-143)
== END ==
LOC: M PLALAB 12:10
PROVIDERS: ATTEND Nurse Practitioner Family
DX: D47.2 Monoclonal gammopathy (principal); D53.9 Nutritional anemia, unspecified

== ENCOUNTER → 2023-07-31 | Outpatient (CLI) | payer MEDICARE, OTHER ==
[~2023-07-31] MED LIST changes: +CELE0.09 PO; -CELE1CAP9 PO; +TRIA1CR80
[2023-07-31 12:50] LABS: INR 1.02; PARTIAL THROMBOPLASTIN TIME 35.8 SECONDS (24.8-34.2); PROTHROMBIN TIME 13.1 SECONDS (12.5-14.5)
== END ==
LOC: M LAB 11:45
PROVIDERS: ATTEND Internal Medicine Hematology & Oncology
DX: D47.2 Monoclonal gammopathy (principal)

== ENCOUNTER → 2024-03-11 | Outpatient (CLI) | payer MEDICARE, OTHER ==
[2024-03-11 19:19] LABS: PROSTATIC SPECIFIC AG MONITOR 1.93 NG/ML (< 4.00)
[2024-03-11 19:23] LABS: TOTAL 25(OH) VITAMIN D 59.1 NG/ML (20.0-100.0)
[2024-03-11 19:25] LABS: ALBUMIN 3.6 G/DL (3.2-5.2); ALKALINE PHOSPHATASE 99 U/L (46-116); ALT/SGPT 31 U/L (7.0-40); AST/SGOT 27 U/L (<34); BILIRUBIN,TOTAL 0.7 MG/DL (0.3-1.2); BLOOD UREA NITROGEN 17 MG/DL (9-23); CARBON DIOXIDE LEVEL 29 MMOL/L (20-31); CHLORIDE LEVEL 106 MMOL/L (98-107); CHOLESTEROL LEVEL 125 MG/DL (<200); GLOMERULAR FILTRATION RATE > 60.0 (>35); GLUCOSE, FASTING 77 MG/DL (74-106); HDL CHOLESTEROL 44.6 MG/DL (>40); LDL CHOLESTEROL 60.4 MG/DL (<100); NON-HDL-C 80.4 MG/DL; POTASSIUM SERUM 4.6 MMOL/L (3.5-5.1); SODIUM LEVEL 141 MMOL/L (136-145); TOTAL PROTEIN 6.7 G/DL (5.7-8.2); TRIGLYCERIDES LEVEL 100 MG/DL (<150); VITAMIN B12 LEVEL 618 PG/ML (211-911)
== END ==
LOC: M PLALAB 14:38
PROVIDERS: ATTEND Nurse Practitioner Family
DX: R79.89 Other specified abnormal findings of blood chemistry (principal); I10 Essential (primary) hypertension; E78.2 Mixed hyperlipidemia; D53.9 Nutritional anemia, unspecified; R97.20 Elevated prostate specific antigen [PSA]; Z79.899 Other long term (current) drug therapy

== ENCOUNTER → 2024-04-13 | Outpatient (CLI) | payer MEDICARE, OTHER | LOC: M RAD 15:28 | PROVIDERS: ATTEND Physician Assistant | DX: I65.23 Occlusion and stenosis of bilateral carotid arteries (principal) ==

== ENCOUNTER → 2024-05-05 | Outpatient (CLI) | payer MEDICARE, OTHER | LOC: M PLAIMG 15:41 | PROVIDERS: ATTEND Nurse Practitioner Family | DX: M25.551 Pain in right hip (principal) ==

== ENCOUNTER → 2025-03-09 | Outpatient (CLI) | payer MEDICARE, OTHER ==
[~2025-03-09] MED LIST changes: +ASPI1CHW2 PO; -EZET10TA21 PO; +EZET10TA57 PO; +LORA-1041 PO; +LORA-1164 PO; -LORA-622 PO; -TRIA1CR80; +TRIA1CR80 TOP
[2025-03-09 15:54] LABS: BASO # 0.0 10^3/uL (0.0-0.2); BASO % 0.6 % (0.0-1.0); EOS # 0.2 10^3/uL (0.0-0.5); EOS % 4.3 % (0.0-3.0); LYMPH # 1.2 10^3/uL (1.5-5.0); LYMPH % 23.6 % (24.0-44.0); MONO # 0.7 10^3/uL (0.0-0.8); MONO % 13.1 % (2.0-8.0); NEUTROPHILS # 3.0 10^3/uL (1.5-8.5); NEUTROPHILS % 58.2 % (36.0-66.0)
[2025-03-09 16:18] LABS: ALT/SGPT 32.0 U/L (7.0-40); AST/SGOT 33.0 U/L (<34); CALCIUM LEVEL 8.5 MG/DL (8.3-10.6); CARBON DIOXIDE LEVEL 29.0 MMOL/L (20-31); CHLORIDE LEVEL 105.0 MMOL/L (98-107); CHOLESTEROL LEVEL 120.0 MG/DL (<200); CHOLESTEROL RISK RATIO 2.6 (<5); CREATININE FOR GFR 1.07 MG/DL (0.70-1.30); GLOMERULAR FILTRATION RATE 69.3 (>35); LDL CHOLESTEROL 57.3 MG/DL (<100); NON-HDL-C 73.9 MG/DL; POTASSIUM SERUM 4.8 MMOL/L (3.5-5.1); SODIUM LEVEL 143.0 MMOL/L (136-145); TRIGLYCERIDES LEVEL 83.0 MG/DL (<150)
[2025-03-09 16:20] LABS: VITAMIN B12 LEVEL 550.0 PG/ML (211-911)
[2025-03-15 13:29] LABS: PSA % FREE 21.0 % (calc) (>25); PSA FREE 0.5 ng/mL; PSA TOTAL 2.4 ng/mL (< OR = 4.0)
== END ==
LOC: M PLALAB 11:53
PROVIDERS: ATTEND Nurse Practitioner Family
DX: R79.89 Other specified abnormal findings of blood chemistry (principal); D53.9 Nutritional anemia, unspecified; I10 Essential (primary) hypertension; E78.2 Mixed hyperlipidemia; N40.1 Benign prostatic hyperplasia with lower urinary tract symptoms

== ENCOUNTER → 2025-06-16 | Outpatient (CLI) | payer MEDICARE, OTHER | LOC: M RAD 11:59 | PROVIDERS: ATTEND Physician Assistant | DX: I65.23 Occlusion and stenosis of bilateral carotid arteries (principal) ==